=== PATIENT | female | born 1965 | race Caucasian/White ===

== ENCOUNTER → 2018-02-27 | Outpatient (CLI) | payer BC ==
[~2018-02-27] MED LIST: MTR600X PO; OXYC-57 PO; [UNRECOGNIZED DRUG - REMARK]
--- NOTE | 2018-02-27 08:58 | DIAGNOSTIC IMAGING REPORT ---
R KNEE 4 OR MORE CLINICAL HISTORY: 52 years-old Female presenting with RIGHT KNEE PAIN, status post injury. TECHNIQUE: Frontal view of the bilateral knees in standing position as well as sunrise, tunnel, and lateral views of the right knee were obtained. COMPARISON: None. FINDINGS: Joint spaces in the right and left knees are symmetric. No significant degenerative changes evident in the left knee. Specifically, the right knee demonstrates no acute fracture or malalignment. No patellar subluxation. Prominent enthesophyte at the insertion of the quadriceps tendon. Otherwise no evidence of degenerative change. No radiographic soft tissue abnormality. IMPRESSION: No acute osseous injury of the right knee or significant degenerative change. Electronically signed by: Miguel Angel Hunter M.D. 02/27/2018 8:57 AM Dictated Date/Time: 02/27/2018 8:55 AM
== END | disposition home or self-care (01) ==
LOC: C.RDSM 08:40
PROVIDERS: ATTEND Family Medicine
DX: M25.561 Pain in right knee (principal)